=== PATIENT | female | born 1975 | race Caucasian/White ===

== ENCOUNTER 2024-02-17 21:20 | Emergency (ER) | payer OTHER, BC, SELFPAY ==
[2024-02-17 21:22] VITALS: BP 135/89
--- NOTE | 2024-02-17 21:56 | ED.MUSCINJ ---
HPI-Injury
General
Chief Complaint: Musculo-Skeletal Complaint
Source: patient
Exam Limitations: none
Time Seen by Provider: 02/17/24 21:43
History of Present Illness-Injury
Is this injury a work related problem?: No
Is pt an associate of [facility]/[place]?: No
Initial Injury comments:
This is a 48 year old female that comes in with c/o left knee pain. States that she was out on the dance floor and she turned and felt this pop in her knee like as if your cracked your Knuckles. States that she was unable to bare any weight on her
knee or walk back to the chair. States that she did not fall. Denies hitting her head or any LOC. Denies any fever, chills, chest pain, SOB, abd pain, nausea, vomiting, diarrhea, headache, dizziness.
Past History
Past History
ED Past Medical History: Hypercholesterolemia and Other (ADHD, Kidney stones)
ED Past Surgical History: Appendectomy, Cholecystectomy, Gynecological (Hysterectomy) and Urological (lithotripsy with stent)
Social History
Tobacco: Former smoker
Alcohol: Occasional
Personal:
Living: with family
Review of Systems
Review of Systems
All Other Systems: ROS reviewed and negative except as documented in HPI and ROS
Constitutional: Reports no symptoms; Denies fever or chills
EENT: Reports no symptoms
Respiratory: Reports no symptoms; Denies cough or trouble breathing
Cardiac: Reports no symptoms; Denies chest pain
ABD/GI: Reports no symptoms; Denies abdominal pain, nausea, vomiting or diarrhea
: Reports no symptoms
Musculoskeletal: Reports joint pain (left knee pain)
Skin: Reports no symptoms
Neurological: Reports no symptoms; Denies dizzy or headache
Psychiatric: Reports no symptoms
Musculoskeletal Injury Exam
Musculoskeletal Injury Exam
Left Knee:
Pain with Movement?: Mild
Tender to palpation?: None
Soft tissue swelling?: None
External deformity and angulation?: None
Joint effusion?: None
Contusion?: None
Hematoma-local bleeding into tissue?: None
Strain- Sprain- Tear (Connective tissue injury)?: Mild
Crepitus with movement?: No
Joint instability?: No
Malalignment/deformity?: No
Range of motion: Limited (Due to pain)
Distal skin color and temperature: normal-warm & good color
Capillary Refill: normal
Normal distal neurovascular exam?: Yes
Phy Exam
General Physical Exam
General Presentation: well appearing and no apparent distress
General age: appears stated age
General Skin: warm and dry
General Habitus: normal
General Mental: alert
General Hydration: appears well hydrated
Eye Exam
Eye Exam: EOMI
Musculoskeletal Exam
Musculoskeletal Exam: other (negative for tenderness with palpation. Discomfort with flexion and extension. )
Skin Exam
Skin Exam: normal color, warm/dry, no rash and no petechia
Psychiatric Exam
Psychiatric Exam: normal mood/affect
Injury Course
Orders/Labs/Results
Orders:
Orders
02/17/24 21:26
CR Knee - Left 4 Or More View* Urgent
Comment:
Reason For Exam: injury
02/17/24 21:56
Gianni Wrap Left-Treatment ONCE
Crutches-Treatment ONCE
Ibuprofen [Motrin] 600 mg PO NOW STA
MDM/Problems Addressed
Differential Diagnosis Includes:
Sprain knee
MDM/Problems Addressed:
This is a 48 year old female that comes in with c/o left knee pain after dancing and turning on the dance floor.
Explained to patient that the X-rays is negative for any fractures. She will need to follow up with the liquified natural gas specialist for further evaluation. Will give patient an gianni wrap and crutches an she can weight bare as tolerted. Patient to use
Motrin or Tylenol for pain. Return with any concerns.
Chronic conditions affecting care:
NA
Acute Exacerbation and/or Progression of Chronic Illness:
NA
*Radiology
Radiology exam reviewed: radiology read reviewed (Left knee-No acute osseous abnormality. )
*Pulse Oximetry
Patient hypoxic: no
*EKG
Interpreted by ED Provider?: NA
Rate: EKG- N/A
*Compressor Assembler Interpretation
Rate: Compressor Assembler- N/A
*Critical Care Note
Total Time (30-74mins, 75-104mins- exclusive of procedures): Not Applicable
ED Attending Note
-
Portions of this chart may have been created with voice recognition software.� Occasional wrong word or��sound alike� substitutions may have occurred due to the inherent limitations of voice recognition software.
Discharge Plan
Departure
Patient Disposition: Home (Routine Discharge)
Date of Disposition: 02/17/24
Time of Disposition: 22:04
Patient with high blood pressure during this ER visit?: Yes
Condition: Good
Covid-19: Not Applicable
Discharge Problem:
Left knee sprain
Instructions: How to Use Crutches, Knee Sprain (DC), BLOOD PRESSURE, RICE Therapy
Activity Restrictions/Additional Instructions:
As discussed, your X-ray is negative for any osseous abnormality. You may use Ibuprofen 600ng bridger 6 hours with food for pain and Alternate with Tylenol 1000mg every 6 hours. Please use the gianni when you are up moving around. You may remove this to
sleep. If you continue with knee pain and are not able to bare weight after 5-7 days you will need to follow up with the liquified natural gas specialist for further evaluation. IF YOU HAVE ANY OTHER CONCERNS PLEASE RETURN TO THE EMERGENCY ROOM.
Interventions
Interventions:
*General Assessment Last Done: 02/17/24 21:22
Discharge Date and Time
Print Language: [id number]
[2024-02-17] MEDS: MOTRIN 600 MG PO (22:16)
[2024-02-17 22:27] VITALS: BP 130/80
== END 2024-02-17 22:29 | disposition home or self-care (01) ==
LOC: EMR 21:20
PROVIDERS: EMERGENCY PHYSICIAN Emergency Medicine
DX: S83.92XA Sprain of unspecified site of left knee, initial encounter (principal); X50.1XXA Overexertion from prolonged static or awkward postures, initial encounter; R03.0 Elevated blood-pressure reading, without diagnosis of hypertension; Z87.891 Personal history of nicotine dependence
CPT/HCPCS: 99283; 73564